=== PATIENT | male | born 1950 | race Caucasian/White ===

== ENCOUNTER → 2017-11-04 | Outpatient (CLI) | payer MEDICARE, OTHER ==
[~2017-11-04] MED LIST: ALLO300 PO; Aspirin EC81 MG PO; Benazepril HCl10 MG PO; CALCIUM 600 MG1 EACH; CENTRUM SILVER1 EAC2 PO; CITRACAL + BON1 EACH PO; Clobetasol Emol15 GM TOP; LEFL20 PO; METFORMIN HCL500 MG PO; Mobic15 MG PO; Simvastatin40 MG PO
== END ==
LOC: LAB SHORT 11:20 → PLD 11:20
DX: D48.5 Neoplasm of uncertain behavior of skin (principal)
CPT/HCPCS: 88305

== ENCOUNTER → 2018-05-15 | Outpatient (CLI) | payer MEDICARE, OTHER ==
[2018-05-15 12:59] LABS: Protein, Urine Quantitative 5.6 mg/dL (0.0-11.9)
== END ==
LOC: LAB 06:35 → LAB SHORT 06:35
PROVIDERS: Family Medicine
DX: R80.9 Proteinuria, unspecified (principal)
CPT/HCPCS: 81050; 84156

== ENCOUNTER → 2018-06-09 | Outpatient (CLI) | payer MEDICARE, OTHER | LOC: LAB SHORT 07:00 → LAB 07:00 | DX: R10.84 Generalized abdominal pain (principal); R19.7 Diarrhea, unspecified | CPT/HCPCS: 87177; 87209 ==

== ENCOUNTER → 2018-06-10 | Outpatient (CLI) | payer MEDICARE, OTHER | LOC: LAB 05:00 → LAB SHORT 05:00 | DX: R19.7 Diarrhea, unspecified (principal); R10.84 Generalized abdominal pain | CPT/HCPCS: 87493 ==

== ENCOUNTER → 2018-12-04 | Outpatient (CLI) | payer MEDICARE, OTHER ==
[2018-12-04 17:56] LABS: Hematocrit 41.5 % (37.0-53.0); Hemoglobin 13.7 g/dL (13.5-17.5); Mean Corpuscular HGB 31.4 pg (26.0-34.0); Mean Corpuscular Volume 95 fL (80-100); Mean Platelet Volume 9.5 fL (9.1-12.4); Platelet Count 268 K/mm3 (150-400); RDW Coefficient Variation 13.6 % (11.7-14.2); RDW Standard Deviation 47.6 fL (35.1-46.3); Red Blood Cell Count 4.37 M/mm3 (4.30-5.90); White Blood Cell Count 4.82 K/mm3 (4.00-11.30)
[2018-12-04 18:11] LABS: Albumin, Blood 4.4 g/dL (3.4-5.0); Bilirubin, Total 1.1 mg/dL (0.1-1.0); Bun/Creatinine Ratio 15.7 (12.0-20.0); Calcium, Blood 8.9 mg/dL (8.5-10.1); Creatinine, Blood 1.34 mg/dL (0.60-1.20); Globulin, Blood 4.5 g/dL (2.2-4.0); Potassium, Blood 3.8 mmol/L (3.5-5.5); Total Protein, Blood 8.9 g/dL (6.4-8.2)
[2018-12-04 19:02] LABS: BAND PERCENT MAN 36 % (0-8); BASOPHILS ABSOLUTE MAN 0.09 K/mm3 (0.00-0.23); BASOPHILS PERCENT MAN 2 % (0-2); EOSINOPHILS PERCENT MAN 0 % (0-6); LYMPHOCYTES ABSOLUTE MAN 0.48 K/mm3 (0.84-5.20); LYMPHOCYTES PERCENT MAN 10 % (21-46); METAMYELOCYTE ABSOLUTE MAN 0.72 K/mm3 (0.00-0.00); METAMYELOCYTE PERCENT MAN 15 % (0-0); MONOCYTES ABSOLUTE MAN 0.86 K/mm3 (0.16-1.47); MONOCYTES PERCENT MAN 18 % (4-13); NEUTROPHILS ABSOLUTE MAN 2.65 K/mm3 (1.96-9.15); SEG NEUTROPHILS PERCENT MAN 19 % (41-73); TOTAL CELLS COUNTED 100
== END ==
LOC: LAB 16:24 → LAB SHORT 16:24
PROVIDERS: Nurse Practitioner
DX: R10.9 Unspecified abdominal pain (principal)
CPT/HCPCS: 80053; 85025

== ENCOUNTER → 2018-12-09 | Outpatient (CLI) | payer MEDICARE, OTHER | END | disposition home or self-care (01) | LOC: LAB SHORT 12:30 → LAB 12:30 → LAB FUT 12-07 11:15 | DX: R19.7 Diarrhea, unspecified (principal); R63.4 Abnormal weight loss | CPT/HCPCS: 87015; 87045; 87046; 87177; 87205; 87209; 87493; 87899 ==

== ENCOUNTER 2019-02-03 06:46 | Day surgery (SDC) | payer MEDICARE, OTHER ==
[~2019-02-03] VITALS: Ht 185.4 cm; Wt 81.1 kg
[2019-02-03] MEDS ORDERED: AMLO5 PO (07:18)
[2019-02-03] MEDS ORDERED: ATOR20 PO (07:18)
[2019-02-03] MEDS ORDERED: TRAZ50 PO (07:19)
== END 2019-02-03 08:33 | disposition home or self-care (01) ==
LOC: ORSCSDS 06:46
PROVIDERS: Surgery
PROC: 0DJD8ZZ Inspection of Lower Intestinal Tract, Via Natural or Artificial Opening Endoscopic (ICD-10-PCS; principal; 2019-02-03 08:00)
DX: R63.4 Abnormal weight loss (principal); R19.7 Diarrhea, unspecified; R10.84 Generalized abdominal pain; Z86.010 Personal history of colon polyps; E11.9 Type 2 diabetes mellitus without complications; I10 Essential (primary) hypertension; E78.5 Hyperlipidemia, unspecified; M06.9 Rheumatoid arthritis, unspecified; Z79.82 Long term (current) use of aspirin; Z79.899 Other long term (current) drug therapy; Z87.891 Personal history of nicotine dependence
CPT/HCPCS: 82947; J0461; J1980; J2405; J2704; J7120

== ENCOUNTER → 2021-05-15 | Outpatient (CLI) | payer MEDICARE, OTHER ==
[~2021-05-15] MED LIST changes: +AMLO5 PO; +ATOR20 PO; +TRAZ50 PO
== END ==
LOC: LAB SHORT 12:03 → LAB 12:03
DX: D48.5 Neoplasm of uncertain behavior of skin (principal)
CPT/HCPCS: 88305

== ENCOUNTER → 2021-06-21 | Outpatient (CLI) | payer MEDICARE, OTHER | LOC: LAB 14:46 → LAB SHORT 14:46 | DX: C44.310 Basal cell carcinoma of skin of unspecified parts of face (principal); Z88.0 Allergy status to penicillin | CPT/HCPCS: 88305 ==

== ENCOUNTER → 2022-06-11 | Outpatient (CLI) | payer MEDICARE | END | disposition home or self-care (01) | LOC: LAB SHORT 11:07 → LAB 11:07 | DX: D48.5 Neoplasm of uncertain behavior of skin (principal) | CPT/HCPCS: 88305 ==